=== PATIENT | female | born 1960 | race Caucasian/White ===

== ENCOUNTER 2018-01-11 14:00 | Emergency (ER) | payer BC, OTHER ==
[2018-01-11 14:05] VITALS: BP 115/69
--- NOTE | 2018-01-11 14:26 | ER Document Report ---
HPI - HPI Pain Level: Denies Notes: Patient is a 57-year-old female with a history of hypertension who presents to the ED complaining of sensation of food stuck in her throat prior to arrival when she was eating fried rice. Patient states that when she was in route via EMS to the hospital she swallowed hard and her symptoms resolved. Patient states that she feels well and is currently symptomatic. Patient also states that she feels embarrassed that she is here as she longer has any symptoms, but was scared initially which prompted her to call EMS. She denies any drug allergies. No other concerns or complaints at this time. Denies any headache, fever, neck pain, drooling, hoarseness, URI, sore throat, chest pain, palpitations, syncope, cough, shortness of breath, wheeze, dyspnea, abdominal pain, nausea/vomiting/diarrhea, urinary retention, dysuria, hematuria, or rash. - ROS Systems Reviewed and Negative: Yes All other systems reviewed and negative Past Medical History - Social History Smoking Status: Never Smoker Family History: Reviewed & Not Pertinent Patient has suicidal ideation: No Patient has homicidal ideation: No Renal/ Medical History: Denies: Hx Peritoneal Dialysis Vertical Provider Document - CONSTITUTIONAL Agree With Documented VS: Yes Notes: PHYSICAL EXAMINATION: GENERAL: Well-appearing, well-nourished and in no acute distress. HEAD: Atraumatic, normocephalic. EYES: Pupils equal round and reactive to light, extraocular movements intact, sclera anicteric, conjunctiva are normal. ENT: EAC clear b/l. TM's intact b/l without erythema, fluid, or perforation. Nares patent and without discharge. oropharynx clear without exudates. No tonsilar hypertrophy or erythema. Moist mucous membranes. No sinus tenderness. No airway compromise. No angioedema. NECK: Normal range of motion, supple without lymphadenopathy LUNGS: Breath sounds clear to auscultation bilaterally and equal. No wheezes rales or rhonchi. HEART: Regular rate and rhythm without murmurs, rubs, gallops. ABDOMEN: Soft, nontender, nondistended abdomen. No guarding, no rebound. No masses appreciated. Normal bowel sounds present. No CVA tenderness bilaterally. NEUROLOGICAL: Cranial nerves grossly intact. Normal speech, normal gait. PSYCH: Normal mood, normal affect. SKIN: Warm, Dry, normal turgor, no rashes or lesions noted. - INFECTION CONTROL TRAVEL OUTSIDE OF THE [place] IN LAST 30 DAYS: No Course - Re-evaluation Re-evalutation: 01/11/18 14:29 Patient is an afebrile, well-hydrated, 37-year-old female who presents to the ED for a worried well visit for sensation of choking prior to arrival. Vitals are acceptable. PE is otherwise unremarkable. Patient is currently asymptomatic and has been since before she arrived. A p.o. challenge was provided and patient did not have any recurrence of symptoms and she is feeling much better. She has no significant tachycardia, tachypnea, or hypoxia. She is nontoxic-appearing. No labs or imaging warranted at this time based on H&P. Low suspicion for any acute systemic emergent condition at this time. Conservative measures for symptoms with close monitoring. Recheck with your PCM in 3-5 days. Consider consult with gastroenterology. Return to the ED with any worsening/concerning symptoms otherwise as reviewed discharge. Patient is in agreement. - Vital Signs Vital signs: Temp Pulse Resp BP Pulse Ox 98.5 F 92 16 115/69 99 01/11/18 14:04 01/11/18 14:04 01/11/18 14:04 01/11/18 14:04 01/11/18 14:04 Discharge - Discharge Clinical Impression: Choking sensation, Worried well Condition: Stable Disposition: HOME, SELF-CARE Additional Instructions: Maintain adequate fluid and food intake healthy diet Monitor for any worsening symptoms Make sure you are staying hydrated enough to urinate and have normal BM's Recheck with your PCM in 3-5 days Consider consult with Gastroenterology for ongoing/worsening symptoms Return to the ED with any worsening symptoms and/or development of fever, headache, chest pain, palpitations, syncope, shortness of breath, trouble breathing, abdominal pain, n/v/d, blood in stool/urine, weakness, or other worsening symptoms that are concerning to you. Referrals: STANISLAW MORENO MD [Primary Care Provider] - Follow up as needed TIFFANIE OROSCO MD [ACTIVE STAFF] - Follow up as needed
== END 2018-01-11 14:28 | disposition home or self-care (01) ==
LOC: ER 14:00
DX: R09.89 Other specified symptoms and signs involving the circulatory and respiratory systems (principal)
CPT/HCPCS: 99283